=== PATIENT | female | born 1985 | race Caucasian/White ===

== ENCOUNTER 2019-08-26 16:41 | Emergency (ER) | payer OTHER, SELFPAY ==
[2019-08-26 16:46] VITALS: BP 132/85; PULSE 87; RESP 16; TEMP 36.8; O2SAT 99
--- NOTE | 2019-08-26 16:59 | ED.DENTAL ---
HPI - Dental/Oral General Chief complaint: Dental/Oral Stated complaint: toothache History of Present Illness HPI Narrative: This is a 33 year old female that comes in complain of left tooth pain that has been going on for the past 5 days Related Data Allergies Allergy/AdvReac Type Severity Reaction Status Date / Time No Known Allergies Allergy Verified 06/12/19 11:36 Review of Systems Review of Systems: Narrative: CONSTITUTIONAL: Denies fever, chills, or sweats. EYES: Denies visual changes, redness, or discharge. ENT: Denies rhinorrhea, congestion, sore throat, or otalgia. tooth pain CARDIOVASCULAR:Denies chest pain, palpitations, or edema. RESPIRATORY: Denies cough or dyspnea. GASTROINTESTINAL: Denies abdominal pain, nausea, vomiting, or diarrhea. GENITOURINARY: Denies dysuria or hematuria. SKIN:[Denies rash or itching. MUSCULOSKELETAL:Denies back pain, joint pain, or myalgia. NEUROLOGIC: Denies headache, numbness, or weakness. PSYCHIATRIC:Denies anxiety or depression PMFSH Past Medical History Medical History (Updated 08/27/19 @ 00:00 by Sandy Jarrell) Healthy female Surgical History Surgical History (Updated 06/12/19 @ 11:55 by Ralph Hughes) No history of previous surgery Social History Social History (Updated 06/12/19 @ 11:55 by Ralph Hughes) Smoking status: Current some day smoker Comments At time as signature, I have reviewed and agree with nursing past medical, social, surgical and family history. Please see nursing chart for further information. There is no relevant family history pertinent to the presenting complaint. Exam Narrative: Exam Narrative: GENERAL:Well-appearing, well-nourished, and in no acute distress. HEAD:Normocephalic, atraumatic. EYES: PERRLA and EOMI. ENT: Nares clear, no rhinorrhea or epistaxis. Mucous membranes moist. left side dental pain and edema noted. NECK: Supple. CHEST: Clear to auscultation. No respiratory distress. HEART: Regular rate and rhythm. No murmur heard. Normal peripheral pulses. ABDOMEN: Soft, nontender, nondistended, normal active bowel sounds. EXTREMITIES: Normal range of motion. No edema. SKIN: Warm, dry, no rash. NEURO: No focal deficits. Alert and oriented x3. Course Vital Signs Vital signs: Vital Signs Temperature 98.2 F 08/26/19 16:46 Pulse Rate 87 08/26/19 16:46 Respiratory Rate 16 08/26/19 16:46 Blood Pressure 132/85 08/26/19 16:46 Pulse Oximetry 99 08/26/19 16:46 Temperature 98.2 F 08/26/19 16:46 Pulse Rate 87 08/26/19 16:46 Respiratory Rate 16 08/26/19 16:46 Blood Pressure 132/85 08/26/19 16:46 Pulse Oximetry 99 08/26/19 16:46 MDM - Dental/Oral Differential Diagnosis Differential diagnosis: Likely gingival abscess, dental caries, toothache and dental abscess Discharge Plan Discharge Clinical Impression: Dental abscess, Toothache Patient Disposition: Home, Self-Care Condition: Stable Instructions: Antibiotic Form, Dental Abscess (ED) Additional Instructions: Please mix 40 ml of liquid Benadryl and 40 ml of Maalox with the lidocaine shake it well and then use 5 ml 4x a day as needed swish and swallow. Follow up with a dentist when you are able or they open back up Prescriptions: New penicillin V potassium 500 mg tablet 500 mg PO Q12H 10 Days Qty: 20 RF: 0 Lidocaine Viscous 2 % solution 1 applic MUCOUS MEM QID PRN (Reason: pain) Qty: 40 RF: 0 ibuprofen 600 mg tablet 600 mg PO TID PRN (Reason: pain) Qty: 20 RF: 0 Follow-up/Referrals: UNKNOWN,DOCTOR [Primary Care Provider] - Stand Alone Forms: Work/School Release IP Time of Disposition: 17:03 Discharge Date/Time: 08/26/19 17:08
== END 2019-08-26 17:08 | disposition home or self-care (01) ==
PROVIDERS: Emergency Provider Nurse Practitioner Family
DX: K04.7 Periapical abscess without sinus (principal)
CPT/HCPCS: 99213; G0463

== ENCOUNTER 2021-05-17 11:30 | Emergency (ER) | payer OTHER, SELFPAY ==
[2021-05-17 11:46] VITALS: BP 120/76; PULSE 68; RESP 16; TEMP 36.4; O2SAT 100
--- NOTE | 2021-05-17 18:44 | ED.GENADULT ---
HPI - General Adult General Chief complaint: Abdominal Pain Stated complaint: UPPER ABD PAIN/STARTED IN BACK Source: patient and RN notes reviewed Limitations: no limitations History of Present Illness HPI narrative: The patient, a non-smoker/exdrinker, presents with a 3-day history of abdominal discomfort. Patient states she has right upper quadrant/ flank pain that is mild, worse with movement or deep breathing, better at rest, it was preceded by back pains. 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 SHe is a last menstrual period ended 5 days ago, last BM was yesterday. Patient advised to go to hospital for higher level testing, which she declines today Related Data Home Medications Medication Instructions Recorded Confirmed citalopram mg 05/17/21 Allergies Allergy/AdvReac Type Severity Reaction Status Date / Time No Known Allergies Allergy Verified 06/12/19 11:36 Review of Systems Review of Systems: General/Constitutional: No weight loss,fever Eyes: N0: Redness,discharge Ears/Nose/Throat: No: Epistaxis,ear discharge Respiratory: Denies: Hemoptysis Gastrointestinal: No Vomiting, Bleeding-rectal Skin: No Lumps, eruption Neurologic: No Focal Weakness,Sz Hematologic: Denies: Petechiae/Purpura Psychiatric: No: Suicida ideationl All Other Systems: Reviewed and Negative [facility] Past Medical History Medical History (Updated 05/17/21 @ 18:51 by Gabo Mccollum MD) Healthy female Surgical History Surgical History (Updated 06/12/19 @ 11:55 by Ralph Hughes) No history of previous surgery Social History Social History (Updated 06/12/19 @ 11:55 by Ralph Hughes) Smoking status: Current some day smoker Comments At time of signature, agree with nursing past medical, surgical, social and family history. There is no relevant family history pertinent to the presenting complaint Exam Narrative: General Appearance: Well appearing, No distress EYE: PERRLA, Conjunctiva clear Ears: External ear normal Nose: Normal nose Mouth/Throat: Normal appearing, Normal lips Neck: Supple Respiratory: Airway patent, No respiratory distress Cardiovascular: RRR Abdomen: Soft, right upper quadrant tenderness, No massess, No organomegaly (no rebound/ surgical signs), Skin: No CVAT, warm, Dry Musculoskeletal: Full ROM Neurological: A&O x3, CN II-X intact Psychiatric: Normal mood, Normal affect Course Vital Signs Vital signs: Vital Signs Temperature 97.6 F 05/17/21 11:46 Pulse Rate 68 05/17/21 11:46 Respiratory Rate 16 05/17/21 11:46 Blood Pressure 120/76 05/17/21 11:46 Pulse Oximetry 100 05/17/21 11:46 Temperature 97.6 F 05/17/21 11:46 Pulse Rate 68 05/17/21 11:46 Respiratory Rate 16 05/17/21 11:46 Blood Pressure 120/76 05/17/21 11:46 Pulse Oximetry 100 05/17/21 11:46 Medical Decision Making Vital Signs Vital Signs: Vital Signs Temperature 97.6 F 05/17/21 11:46 Pulse Rate 68 05/17/21 11:46 Respiratory Rate 16 05/17/21 11:46 Blood Pressure 120/76 05/17/21 11:46 Pulse Oximetry 100 05/17/21 11:46 Temperature 97.6 F 05/17/21 11:46 Pulse Rate 68 05/17/21 11:46 Respiratory Rate 16 05/17/21 11:46 Blood Pressure 120/76 05/17/21 11:46 Pulse Oximetry 100 05/17/21 11:46 Lab Data Labs: Urine Glucose Negative Reference Range: Negative Urine Bilirubin Negative Reference Range: Negative Urine Ketone Negative Reference Range: Negative Urine Specific [place] 1.030 Reference Range:1.001-1.035 Urine Blood Negative Reference Range: Negat
== END 2021-05-17 13:43 | disposition home or self-care (01) ==
PROVIDERS: Emergency Provider Emergency Medicine
DX: R10.11 Right upper quadrant pain (principal); F17.200 Nicotine dependence, unspecified, uncomplicated
CPT/HCPCS: 81003; 99213; G0463

== ENCOUNTER 2021-05-18 14:50 | Emergency (ER) | payer OTHER, SELFPAY ==
[2021-05-18 14:53] VITALS: BP 137/88; PULSE 108; RESP 16; TEMP 36.6; O2SAT 98
[2021-05-18 19:20] VITALS: BP 149/100; PULSE 78; RESP 16; O2SAT 98
[2021-05-18 20:32] VITALS: BP 132/79; PULSE 76; RESP 16; O2SAT 99
[2021-05-18 20:48] LABS: Basophils Percent Auto 0.6 % (0.2-1.2); Eosinophils Absolute Auto 0.1 K/mm3 (0-0.3); Eosinophils Percent Auto 1.3 % (0-4.4); Hematocrit 35.4 % (37.0-47.0); Hemoglobin 11.7 g/dL (12.0-15.0); Immature Granulocyte Absolute 0.02 K/mm3 (0.00-0.031); Immature Granulocyte Percent A 0.3 % (0-0.5); Lymphocytes Absolute Auto 2.68 K/mm3 (0.9-3.2); Lymphocytes Percent Auto 37.3 % (18.3-44.2); Mean Corpuscular HGB Conc 33.1 g/dl (32-36); Mean Corpuscular Hemoglobin 29.6 pg (26-34); Mean Corpuscular Volume 89.6 fl (80-100); Mean Platelet Volume 10.1 fl (7.4-10.4); Monocytes Absolute Auto 0.6 K/mm3 (0.1-0.6); Monocytes Percent Auto 8.5 % (2.6-8.5); Neutrophils Absolute Auto 3.7 K/mm3 (1.3-6.7); Platelet Count Result 343 k/mm3 (150-375); Red Blood Count 3.95 M/mm3 (4.2-5.4); Red Cell Distribution Width 12.6 % (11.5-14.5); White Blood Count 7.2 K/mm3 (4.5-10.0)
[2021-05-18 20:58] LABS: Alanine Aminotransferase 47 U/L (4-35); Albumin Level 4.7 g/dL (3.5-5.1); Alkaline Phosphatase 68 U/L (38-126); Anion Gap 11 mmol/L (8-16); Aspartate Amino Transferase 38 U/L (14-36); Bilirubin,Total 0.5 mg/dL (0.2-1.3); Blood Urea Nitrogen 12 mg/dL (7-17); Calcium 8.9 mg/dL (8.4-10.2); Carbon Dioxide 23 mmol/L (22-30); Chloride 100 mmol/L (98-107); Estimated CRCL calculation 107 ml/min; Estimated Glomerular Filt Rate > 60; Glucose 89 mg/dL (65-110); Lipase 251 U/L (23-300); Potassium 3.8 mmol/L (3.4-5.0); Sodium 134 mmol/L (137-145)
[2021-05-18 21:04] LABS: Add Urine Microscopic? YES; Appearance Urine Clear (Clear); Bacteria Urine Trace /hpf; Bilirubin Urine Negative (Negative); Blood Urine Negative (Negative); Color Urine Yellow (Yellow); Glucose Urine UA Negative (Negative); Ketones Urine 1+ mg/dL (Negative); Leukocyte Esterase Ur Negative LEU/UL (Negative); Mucus Urine Rare /lpf; Nitrate Urine Negative (Negative); Protein Urine Negative (Negative); RBC Urine 0-2 /hpf (0-2); Specific Grav Ur 1.016 (1.001-1.035); Squamous Epithelial Cell Urine Moderate /hpf (Few); Urobilinogen Urine Negative mg/dL (<2.0); WBC Urine 0-3 /hpf
[2021-05-18 22:13] VITALS: BP 133/85; PULSE 84; RESP 18; O2SAT 99
--- NOTE | 2021-05-18 22:56 | ED.GENADULT ---
HPI - General Adult General Chief complaint: Abdominal Pain Stated complaint: abd pain Time Seen by Provider: 05/18/21 20:05 History of Present Illness HPI narrative: Patient is a 35-year-old female who presents ER with 2 different issues. Main issue is right upper quadrant pain. Ongoing over the last couple days. Was seen in urgent care and they placed her on Augmentin in case she had infection from biliary colic. She contacted her PCP who recommended she come to the ER for ultrasound if he cannot get an outpatient ultrasound for 2 weeks. Patient has no fevers or chills or sweats. She does have some pain with eating. No diarrhea. She has had issues with emesis. Patient also reports some low back pain that is aching in nature. Worse with movement. Right side and in the lumbar region. No reports of injury. Related Data Home Medications Medication Instructions Recorded Confirmed citalopram mg 05/17/21 Allergies Allergy/AdvReac Type Severity Reaction Status Date / Time No Known Allergies Allergy Verified 06/12/19 11:36 Review of Systems Review of Systems: All systems reviewed & are unremarkable except as noted in HPI and below Constitutional: Constitutional: Denies chills, Denies fever(s) and Denies weakness Cardiovascular: Cardiovascular: Denies chest pain, Denies rapid heart rate and Denies radiating jaw, neck or arm pain Respiratory: Respiratory: Denies cough, Denies dyspnea and Denies wheezing Gastrointestinal: Gastrointestinal: Reports abdominal pain, Denies heartburn, Denies diarrhea, Reports nausea and Reports vomiting Musculoskeletal: Musculoskeletal: Reports back pain, Denies joint swelling and Denies muscle cramps Integumentary/Breasts: Skin/Breast: Denies pruritus, Denies erythema and Denies rash Neurologic: Denies focal weakness and Denies numbness PMFSH Past Medical History Medical History (Updated 05/18/21 @ 23:00 by Ivan Squires MD) Healthy female Surgical History Surgical History (Updated 06/12/19 @ 11:55 by Ralph Hughes) No history of previous surgery Social History Social History (Updated 06/12/19 @ 11:55 by Ralph Hughes) Smoking status: Current some day smoker Exam Narrative: GENERAL: Well-appearing, well-nourished, and in no acute distress. HEAD: Normocephalic, atraumatic. ENT: Mucous membranes moist. CHEST: Clear to auscultation. No respiratory distress. HEART: Regular rate and rhythm. Normal peripheral pulses. ABDOMEN: Soft, nontender, nondistended. Back: No midline tenderness of thoracic or lumbar spine. Very mild right paraspinal muscular tenderness at the level of L4. No palpable spasm. No visual evidence of trauma. EXTREMITIES: Normal range of motion. No edema. SKIN: Warm, dry, no rash. NEURO: Alert and oriented x3. PSYCH: Normal mood and affect. Course Course Emergency Course: Labs unremarkable. Will start on Protonix in case she has GERD or peptic ulcer. Mild transaminitis. No Enriquez sign. Follow-up with PCP. Recommend low-fat diet. Vital Signs Vital signs: Vital Signs Temperature 97.8 F 05/18/21 14:53 Pulse Rate 108 H 05/18/21 14:53 Respiratory Rate 16 05/18/21 14:53 Blood Pressure 137/88 05/18/21 14:53 Pulse Oximetry 98 05/18/21 14:53 Temperature 97.8 F 05/18/21 14:53 Pulse Rate 84 05/18/21 22:13 Respiratory Rate 18 05/18/21 22:13 Blood Pressure 133/85 05/18/21 22:13 Pulse Oximetry 99 05/18/21 22:13 Medical Decision Making Vital Signs Vital Signs: Vital Signs Temperature 97.8 F 05/18/21 14:53 Pulse Rate 108 H 05/18/21 14:53 Respiratory Rate 16 05/18/21 14:53 Blood Pressure 137/88 05/18/21 14:53 Pulse Oximetry 98 05/18/21 14:53 Temperature 97.8 F 05/18/21 14:53 Pulse Rate 84 05/18/21 22:13 Respiratory Rate 18 05/18/21 22:13 Blood Pressure 133/85 05/18/21 22:13 Pulse Oximetry 99 05/18/21 22:13 Lab Data Result diagrams: 05/18/21 20:21 1
[2021-05-18 23:19] VITALS: BP 126/71; PULSE 78; RESP 18; O2SAT 100
== END 2021-05-18 23:20 | disposition home or self-care (01) ==
PROVIDERS: Emergency Provider Emergency Medicine
DX: R10.11 Right upper quadrant pain (principal); F17.200 Nicotine dependence, unspecified, uncomplicated
CPT/HCPCS: 36415; 80053; 81001; 83690; 85025; 99283

== ENCOUNTER 2021-07-16 17:42 | Emergency (ER) | payer OTHER, SELFPAY ==
[2021-07-16 17:45] VITALS: BP 129/78; PULSE 84; RESP 16; TEMP 36.6; O2SAT 99
--- NOTE | 2021-07-16 17:47 | ED.DENTAL ---
HPI - Dental/Oral General Chief complaint: Dental/Oral Stated complaint: FACIAL PAIN/SWELLING Time Seen by Provider: 07/16/21 17:48 Source: patient, RN notes reviewed and old records reviewed Mode of arrival: ambulatory Limitations: no limitations History of Present Illness HPI Narrative: 35-year-old female patient [facility] complaints of pain in front of right ear and right upper jaw pain beginning yesterday. Reports started yesterday, not much pain with movement, pain increases with movement. Rates pain at 5 out of 10 with movement. Worse with chewing. Reports pain with touch to jaw. Denies chipped tooth or injury to that area. Reports mild tooth sensitivity. Denies headache, stuffy nose, runny nose, or left ear pain. Occasional cough. Denies fever muscle aches or chills. Has not taken anything for pain. Teeth map: 1. Pain with pressure. Related Data Home Medications Medication Instructions Recorded Confirmed citalopram mg 05/17/21 Allergies Allergy/AdvReac Type Severity Reaction Status Date / Time No Known Allergies Allergy Verified 06/12/19 11:36 Review of Systems Review of Systems: CONSTITUTIONAL: Denies malaise, chills, sweats, fatigue or fever. EYES: Denies visual changes, redness, or discharge. ENT: Denies rhinorrhea, congestion, sinus pain, otalgia or sore throat. Pain in front of right ear. Pain at right upper jaw. CARDIOVASCULAR: Denies chest pain, palpitations, or edema. RESPIRATORY: Denies cough or dyspnea. GASTROINTESTINAL: Denies abdominal pain, nausea, vomiting, diarrhea, bloody, or mucous stools. GENITOURINARY: Denies dysuria or hematuria. SKIN: Denies rash or itching. MUSCULOSKELETAL: Denies back pain, joint pain, or myalgia. NEUROLOGIC: Denies numbness, weakness, or headache. PSYCHIATRIC: Denies anxiety or depression. All systems reviewed & are unremarkable except as noted in HPI and below PMFSH Past Medical History Medical History Healthy female Surgical History Surgical History No history of previous surgery Social History Social History Smoking status: Current some day smoker Comments At time of signature, agree with nursing past medical, surgical, social and family history. There is no relevant family history pertinent to the presenting complaint Exam Narrative: GENERAL: Well-appearing, well-nourished, female and in no acute distress. Pleasant, cooperative, casually dressed. HEAD: Normocephalic, atraumatic. Right parotid tenderness with palpation. EYES: conjunctivae clear, and EOMI. No nystagmus. MOUTH: Right posterior upper gum tenderness with touch and mildly edematous. ENT: Nares clear, turbinates pink, no rhinorrhea or epistaxis. Mucous membranes moist. TM pearly weathers with sharp light reflex bilaterally; no tragal tenderness. Oropharynx without erythema or lesions. Tonsils not enlarged and without exudate. NECK: Supple. No anterior cervical or tonsillar lymphadenopathy or tenderness with palpation. No parotid lymphadenopathy. Parotid lymph tenderness with palpation.. No jugular venous distension, thyromegaly, or carotid bruits. CHEST: No respiratory distress. Clear to auscultation anterior and posterior. No bony deformities, no asymmetry. Speaks in full sentences. HEART: Regular rate and rhythm. No murmur heard. Normal peripheral pulses. ABDOMEN: Soft, nontender, nondistended, normal active bowel sounds, no palpable masses. EXTREMITIES: Normal range of motion. No edema. Normal strength and sensation. SKIN: [place], warm, dry, no rash. NEURO: Alert and oriented x3. No focal deficits. Cranial nerves II through XII grossly intact PSYCH: Normal mood and affect Course Course Emergency Course: Patient is aware of diagnosis, understands and agrees to treatment plan. Anticipatory guidance
[2021-07-16 17:49] VITALS: BP 129/78; PULSE 84; RESP 16; TEMP 36.6; O2SAT 99
== END 2021-07-16 18:18 | disposition home or self-care (01) ==
PROVIDERS: Emergency Provider Nurse Practitioner Family
DX: K04.7 Periapical abscess without sinus (principal)
CPT/HCPCS: 99213; G0463

== ENCOUNTER 2021-08-25 00:35 | Emergency (ER) | payer OTHER, SELFPAY ==
[2021-08-25] VITALS (8 sets, daily range): BP systolic 100–116; BP diastolic 53–78; PULSE 58–79; RESP 7–26; TEMP 36.8; O2SAT 95–100
--- NOTE | ~2021-08-25 | CT_ITS ---
EXAMINATION: CT abdomen pelvis w con DATE: 08/25/2021 02:13 INDICATION: Right upper quadrant abdominal pain. TECHNIQUE: Computed tomography (CT) of the abdomen and pelvis was performed with 100 mL Omnipaque 350 intravenous contrast. Automated exposure control and iterative reconstruction technique were employe d. The dose-length product was 503.98 mGy-cm. COMPARISON: Abdomen ultrasound 05/15/2018 FINDINGS: The visualized portions of the lung bases demonstrate mild atelectasis. No pleural effusion . The heart size is normal. No pericardial effusion. The liver demonstrates focal steatosis adjacent to the falciform ligament. The gallbladder is distended and contains gallstones. The spleen, pancreas , adrenal glands, and kidneys are normal. There are no dilated loops of bowel. The appendix is normal . There is physiologic fluid in the pelvis. There are no pathologically enlarged lymph nodes. There i s mild thoracolumbar spondylosis. IMPRESSION: 1. Distended gallbladder with gallstones, consistent with acute cholecystitis. Reviewed, dictated and finalized at location A.
[2021-08-25 00:49] LABS: Basophils Percent Auto 0.4 % (0.2-1.2); Eosinophils Absolute Auto 0.1 K/mm3 (0-0.3); Eosinophils Percent Auto 1.1 % (0-4.4); Hematocrit 32.6 % (37.0-47.0); Hemoglobin 10.1 g/dL (12.0-15.0); Immature Granulocyte Absolute 0.01 K/mm3 (0.00-0.031); Immature Granulocyte Percent A 0.1 % (0-0.5); Lymphocytes Absolute Auto 3.58 K/mm3 (0.9-3.2); Lymphocytes Percent Auto 49.9 % (18.3-44.2); Mean Corpuscular Hemoglobin 26.5 pg (26-34); Mean Corpuscular Volume 85.6 fl (80-100); Mean Platelet Volume 10.7 fl (7.4-10.4); Monocytes Absolute Auto 0.7 K/mm3 (0.1-0.6); Monocytes Percent Auto 9.8 % (2.6-8.5); Neutrophils Absolute Auto 2.8 K/mm3 (1.3-6.7); Neutrophils Percent Auto 38.7 % (45.5-73.1); Platelet Count Result 298 k/mm3 (150-375); Red Blood Count 3.81 M/mm3 (4.2-5.4); Red Cell Distribution Width 15.4 % (11.5-14.5); White Blood Count 7.2 K/mm3 (4.5-10.0)
--- NOTE | 2021-08-25 00:56 | ED.ABDPAIN ---
HPI - Abdominal Pain General Chief Complaint: Abdominal Pain <HAILEY Griffiths Last Filed: 08/25/21 02:57> Stated Complaint: ABD PAIN <HAILEY Griffiths Last Filed: 08/25/21 02:57> Time Seen by Provider: 08/25/21 00:46 <HAILEY Griffiths Last Filed: 08/25/21 02:57> Source: patient <HAILEY Griffiths Last Filed: 08/25/21 02:57> Mode of arrival: EMS <HAILEY Griffiths Last Filed: 08/25/21 02:57> Limitations: no limitations <HAILEY Griffiths Last Filed: 08/25/21 02:57> History of Present Illness HPI narrative: This is a 35 year old female that presents to the ER for RUQ pain intermittent over the last couple of days. Worsening tonight after eating fried rice and vegetables. Associated with nausea. Denies fever, vomiting, diarrhea, or dysuria. <HAILEY Griffiths Last Filed: 08/25/21 02:57> Related Data Home Medications: Home Medications Medication Instructions Recorded Confirmed citalopram mg 05/17/21 <HAILEY Griffiths Last Filed: 08/25/21 02:57> Allergies/Adverse Reactions: Allergies Allergy/AdvReac Type Severity Reaction Status Date / Time No Known Allergies Allergy Verified 08/25/21 00:39 <HAILEY Griffiths Last Filed: 08/25/21 02:57> Review of Systems Review of Systems: CONSTITUTIONAL: Denies fever CARDIOVASCULAR: Denies chest pain RESPIRATORY: Denies dyspnea. GASTROINTESTINAL: Reports abdominal pain, nausea. Denies vomiting, or diarrhea. GENITOURINARY: Denies dysuria or hematuria. <HAILEY Griffiths Last Filed: 08/25/21 02:57> All systems reviewed & are unremarkable except as noted in HPI and below <HAILEY Griffiths Last Filed: 08/25/21 02:57> [facility] Past Medical History Medical History: Medical History (Updated 08/25/21 @ 05:10 by Ronni Knox MD) History of anxiety History of depression <María Stanley PA-C - Last Filed: 08/25/21 02:57> Surgical History Surgical History: Surgical History No history of previous surgery <María Stanley PA-C - Last Filed: 08/25/21 02:57> Social History Social History: Social History Smoking status: Current some day smoker <María Stanley PA-C - Last Filed: 08/25/21 02:57> Exam Narrative: GENERAL: Well-appearing, well-nourished, and in no acute distress. HEAD: Normocephalic, atraumatic. EYES: EOMI. CHEST: Clear to auscultation. No respiratory distress. No wheezes rales or rhonchi HEART: Regular rate and rhythm. No murmur heard. Normal peripheral pulses. ABDOMEN: Soft, nondistended, normal active bowel sounds. Tender to palpation in the right upper quadrant, without guarding. No CVA tenderness EXTREMITIES: Normal range of motion. No edema. SKIN: Warm, dry, no rash. NEURO: No focal deficits. Alert and oriented x3. PSYCH: Normal mood and affect <María Stanley PA-C - Last Filed: 08/25/21 02:57> Course [employer]/PA Physician Supervision For this patient encounter, I reviewed the [employer] or PA documentation, treatment plan, and medical decision making; and I had [id number] time with this patient. Patient feels significantly improved at time of signout. Patient had no reproducible tenderness to palpation on exam. Patient states that she has had 2 prior gallbladder attacks but this was the most severe. Patient states that she does feel improved and comfortable with the plan for discharge to home. Patient is afebrile. Patient has no leukocytosis and patient has a benign abdominal exam at this time. Patient was encouraged to have close follow-up with surgery. Patient was also educated on reasons to return to the [facility]. All questions and concerns were addressed. <Ronni Knox MD - Last Filed: 08/25/21 05:53> Vital Signs Vital signs: Vital Signs Temperature 98.3 F
[2021-08-25 01:00] LABS: Alanine Aminotransferase 30 U/L (4-35); Albumin Level 4.1 g/dL (3.5-5.1); Alkaline Phosphatase 53 U/L (38-126); Anion Gap 9 mmol/L (8-16); Aspartate Amino Transferase 40 U/L (14-36); Bilirubin,Total 0.2 mg/dL (0.2-1.3); Blood Urea Nitrogen 11 mg/dL (7-17); Carbon Dioxide 22 mmol/L (22-30); Chloride 107 mmol/L (98-107); Estimated CRCL calculation 116 ml/min; Estimated Glomerular Filt Rate > 60; Glucose 124 mg/dL (65-110); Lipase 517 U/L (23-300); Potassium 3.4 mmol/L (3.4-5.0); Sodium 138 mmol/L (137-145)
[2021-08-25] MEDS: PANTOPRAZOLE SODIUM IV 40 MG VIAL IV PUSH (01:07)
[2021-08-25] MEDS: SODIUM CHLORIDE 0.9% IV 1,000 ML 999 ML IV CONT (01:07)
[2021-08-25 02:02] LABS: Add Urine Microscopic? YES; Appearance Urine Clear (Clear); Bacteria Urine Trace /hpf; Bilirubin Urine Negative (Negative); Blood Urine 2+ (Negative); Color Urine Yellow (Yellow); Glucose Urine UA Negative (Negative); Ketones Urine Trace mg/dL (Negative); Leukocyte Esterase Ur Negative LEU/UL (Negative); Mucus Urine Rare /lpf; Nitrate Urine Negative (Negative); Protein Urine Negative (Negative); RBC Urine 0-2 /hpf (0-2); Specific Grav Ur 1.019 (1.001-1.035); Squamous Epithelial Cell Urine Few /hpf (Few); Urobilinogen Urine Negative mg/dL (<2.0); WBC Urine 0-3 /hpf
== END 2021-08-25 05:15 | disposition home or self-care (01) ==
PROVIDERS: Emergency Provider Emergency Medicine
DX: K80.50 Calculus of bile duct without cholangitis or cholecystitis without obstruction (principal); R10.11 Right upper quadrant pain; F41.9 Anxiety disorder, unspecified; F32.A Depression, unspecified
CPT/HCPCS: 36415; 74177; 80053; 81001; 81025; 83690; 85025; 96365; 96375; 99284; C9113; J0131; J7030; Q9967

== ENCOUNTER 2021-09-04 09:25 | Outpatient (CLI) | payer OTHER, SELFPAY ==
[2021-09-04 10:16] LABS: Amylase 72 U/L (30-110); Lipase 254 U/L (23-300)
== END 2021-09-04 09:26 | disposition home or self-care (01) ==
LOC: ANHSURGERY 09:33
PROVIDERS: Visit Provider Surgery
DX: Z01.812 Encounter for preprocedural laboratory examination (principal); K81.0 Acute cholecystitis
CPT/HCPCS: 36415; 82150; 83690; 86850; 86900; 86901

== ENCOUNTER 2021-09-06 00:28 | Day surgery (SDC) | payer OTHER, SELFPAY ==
[2021-08-30 14:38] VITALS: BMI 29.2
--- NOTE | 2021-08-30 14:53 | PC.NURSE ---
Report to the Outpatient Waiting Room, entrance under the green pavilion located off [facility], at time 11:30 on date 09/06/21. OR Time: 1:30. - You and your visitor will be asked a series of questions to screen for COVID 19 for your protection. - A mask is required within the hospital. One visitor will be allowed to accompany the patient into the hospital. Patients visitor will be instructed to remain with patient at all times or leave the building. We will allow the visitor to come back to the postoperative area when patient is ready. Preoperative COVID Testing Requirements: No COVID Test needed if: (proof is required; if not received patient will have Rapid Test prior to entry) - Patient has received COVID Vaccine at least 14 days prior to procedure date or - Patient has positive COVID test result within last 90 days of surgery date. COVID Test needed if above criteria is not met Patients may have clear liquids (water, carbonated beverages, clear teas, apple juice) until 3 hours prior to surgery with a maximum of 20 ounces. - No food from midnight until time of surgery Take the following medications with a SIP of water the morning of surgery: CITALOPRAM, PAIN PILL (IF NEEDED) Medications to discontinue per physician: VITAMINS/SUPPLEMENTS Date to take last dose: 09/02/21 Please no make-up, nail french, hairspray, perfume, deodorant, or body powder the day of surgery. No jewelry (including any body piercings) or valuables the day of surgery, leave them at home. Please take a shower or bath the night before, or the morning of, surgery with an antibacterial soap. Wear comfortable, loose fitting clothing. HIBICLENS SHOWER - Jewelry must be removed prior to entering the operating room. Rings and piercings that are not removed may be cut off. - The hospital will not accept responsibility for valuables. - Please leave all valuables, including medications, at home the day of surgery. If you are going home after surgery, a licensed over the road driver must drive you home. - NO public transportation without another adult. - We recommend that an adult stay with you for 24 hours following discharge. - We also recommend that you do not drive, make important decision, drink alcoholic beverages, or take any drugs that were not prescribed by your health care provider for at least 24 hours after your discharge time. Follow any additional instructions given to you from your surgeon. Telephone instructions given to AMALIA GRAHAM and asked if any additional questions and then verbalized understanding. Patient advised to call surgeon office or pre surgery nurse liaison [phone] if any additional questions.
[2021-09-06] VITALS (9 sets, daily range): BP systolic 92–116; BP diastolic 58–69; PULSE 59–72; RESP 14–16; TEMP 36.1–37; O2SAT 97–100
--- NOTE | 2021-09-06 10:07 | WPDANESEPPF ---
Anes - Initial Pre Proc Eval Procedure: Operation Date: 09/06/21 12:00 Proposed Procedures p Laparoscopic Cholecystectomy - Rhona Farrell MD Date/Time: 09/06/21 10:07 Surgeon: Rhona Farrell MD Pre Op Diagnosis: acute cholecystitis,acute biliary pancreatitis Patient Data Age: 35 Gender: F Height: 1.63 m Weight: 77.11 kg Allergies Allergy/AdvReac Type Severity Reaction Status Date / Time No Known Allergies Allergy Verified 09/06/21 10:52 Home Medications Medication Instructions Recorded Confirmed Type citalopram 20 mg PO DAILY 05/17/21 09/06/21 History hydrocodone-acetaminophen 1 tablet PO Q8H PRN #14 tablet 08/25/21 09/06/21 Rx cholecalciferol (vitamin D3) 25 mcg PO DAILY 08/30/21 09/06/21 History [Vitamin D3] Patient hx anesthesia problems: none Family hx anesthesia problems: none Results Review: All pre-operative results and documents have been reviewed as part of the pre-operative evaluation. [facility] Past Medical History Medical History History of anxiety History of depression Surgical History Surgical History H/O section Social History Social History Smoking packs per day: 0.25 Smoking cigarettes per day: 5.0 Years smoked: 15 Smoking pack-years: 3.75 Smoking status: Former smoker Tobacco type: cigarettes Smoking end date: 02/17/21 Alcohol intake: current Drinks per week: 4 Substance use: never Substance use type: does not use Living arrangements: with family Additional living arrangements comments: DAUGHTER Gender identity (if verbalized by the patient): Female Spiritual care concerns: No Anes - Eval Final PreProcedure Day of Procedure 09/06/21 10:07 Patient weight: overweight Heart: regular rate and rhythm Lungs: clear to auscultation and normal air movement Airway: Mallampati scale class II Neurological: alert and oriented Last oral intake: >/= 8 hours ASA classification: II Emergent: no Anesthetic plan: proceed Anesthesia type and monitoring: general ETT and standard monitoring Results Review: All pre-operative results and documents have been reviewed as part of the pre-operative evaluation. Informed Consent: The patient's anesthetic plan and its attendant risks and benefits were discussed with the patient/family/POA. Questions were solicited and answers provided to the satisfaction of the patient/family/POA.
[2021-09-06] MEDS: ACETAMINOPHEN 500 MG TABLET 1000 MG PO (11:10)
[2021-09-06] MEDS: LACTATED RINGERS 1,000 ML 30 ML IV CONT ×2 (11:30→13:15)
[2021-09-06] MEDS: KETOROLAC 15 MG/ML VIAL (*BKC) IV PUSH ×2 (11:30→14:42)
--- NOTE | 2021-09-06 12:12 | WPDHPUPDATE1 ---
History and Physical Update Update Date/Time: 09/06/21 12:12 History and Physical has been reviewed, including an updated exam of the patient. There are NO changes in the patient's condition. Risks, benefits, and alternatives have been discussed and questions answered. Patient agrees to proceed with procedure.
[2021-09-06] MEDS: ceFAZolin 2 GM/D5W 50 ML 2 GM/50 ML BAG IVPB (12:29)
--- NOTE | 2021-09-06 13:07 | W.PM.PROC2 ---
Procedure Note - Detailed Date of Procedure 09/06/21 Pre-op Diagnosis acute cholecystitis,acute biliary pancreatitis Post-op Diagnosis Same Procedure Performed Laparoscopic cholecystectomy Surgeon Rhona Farrell MD Anesthesia General Indications 35 y/o F previously presented with acute biliary pancreatitis, now presenting for interval cholecystectomy Findings moderate cholecystitis Description of Procedure The patient was taken to the operating room placed in the supine position. After adequate induction of general anesthesia, the patient was prepped and draped in normal sterile fashion. A time-out was then performed to verify the patient's identity as well as the procedure being performed. I then made a 5 mm incision in the infraumbilical region. Through this, a Veress needle was placed into the peritoneal cavity and CO2 gas was then insufflated. After adequate pneumoperitoneum was achieved, the Veress needle was removed and a 5 mm optiview trocar was placed through this incision under direct visualization. I then placed the laparoscope through this trocar site and under direct visualization placed a further 12 mm subxiphoid port as well as 2 additional 5 mm ports in the right upper abdomen. The gallbladder was then identified and was noted to be moderately inflamed and distended. I was able to place a grasper at the dome of the gallbladder and this was retracted anterior and cephalad up over the liver. A 2nd retractor was then placed at the infundibulum and retracted laterally, this allowed visualization of the triangle of Calot. I then was able to visualize the cystic duct in its entirety from its proximal insertion into the gallbladder, to its distal junction with the common hepatic/common bile duct junction. At this point, I carefully skeletonized the proximal cystic duct with the [place] dissector. I then clipped and transected the proximal cystic duct. Next I visualized the cystic artery. Again the artery was skeletonized, clipped, and transected. I then used the Bovie cautery to take down the peritoneal attachments of the gallbladder off the liver bed. Once the gallbladder specimen was completely detached, an endo-pouch was placed through the 12 mm port site. I then placed the gallbladder specimen into the Endo pouch and removed the endo-pouch from the 12 mm port site. The specimen will now be sent to pathology for further review. I then copiously irrigated the right upper quadrant. Hemostasis was noted in the liver bed, the clips were noted to be in good position on both the cystic duct stump and the cystic artery stump. No other pathology was noted in the right upper quadrant. I then moved the laparoscope to the subxiphoid port. No iatrogenic injury or other pathology was noted in the lower abdomen. I then closed the 12 mm trocar site under direct visualization using the Jacob cone and 0 Vicryl suture. At this point, the abdomen was desufflated and all ports removed. All port sites were then closed with 4.O Monocryl subcuticular sutures. Dermabond was placed on each incision. The patient tolerated the procedure well, was extubated in the operating room postoperative and will be transferred to the recovery room in stable condition Estimated Blood Loss 5 Drains No Packing No Pathology Yes Complications No immediate complications Condition Stable Disposition PACU
[2021-09-06] MEDS: fentaNYL CITRATE INJ (*CRX) 100 MCG/2 ML VIAL 25 MCG IV PUSH ×4 (13:25→13:50)
[2021-09-06] MEDS: ONDANSETRON INJ 4 MG/2 ML VIAL IV PUSH (13:46)
[2021-09-06] MEDS: diphenhydrAMINE HCl INJ 50 MG/ML VIAL 25 MG IV PUSH (14:38)
[2021-09-06] MEDS: SCOPOLAMINE 1.5 MG PATCH TRANSDERM (14:41)
[2021-09-06] MEDS: oxyCODONE HCL (*CRX) 5 MG TAB IR PO (15:05)
== END 2021-09-06 16:10 | disposition home or self-care (01) ==
PROVIDERS: Visit Provider Surgery
PROC: 0FT44ZZ Resection of Gallbladder, Percutaneous Endoscopic Approach (ICD-10-PCS; CPT 47562; principal; 2021-09-06 12:00)
DX: K85.10 Biliary acute pancreatitis without necrosis or infection (principal); K81.1 Chronic cholecystitis; Z87.891 Personal history of nicotine dependence; F41.8 Other specified anxiety disorders
CPT/HCPCS: 47562; 88304; A9270; J0690; J1170; J1200; J1885; J2250; J2405; J2704; J3010; J7030; J7120

== ENCOUNTER 2021-11-16 13:25 | Outpatient (CLI) | payer OTHER, SELFPAY ==
[2021-11-16 13:56] LABS: Hematocrit 36.2 % (37.0-47.0); Hemoglobin 11.6 g/dL (12.0-15.0)
== END 2021-11-16 13:26 | disposition home or self-care (01) ==
LOC: ANHSURGERY 13:31
PROVIDERS: Anesthesiology; Visit Provider Obstetrics & Gynecology
DX: D64.9 Anemia, unspecified (principal); Z01.818 Encounter for other preprocedural examination
CPT/HCPCS: 36415; 85014; 85018

== ENCOUNTER 2021-11-22 01:59 | Day surgery (SDC) | payer OTHER, SELFPAY ==
[2021-11-15 14:02] VITALS: BMI 27.6
--- NOTE | 2021-11-15 14:05 | PC.NURSE ---
Report to the Outpatient Waiting Room, entrance under the green pavilion located off [facility], at time ___06:00AM____ on date ___5[birth year]____. OR Time: ____07:30AM__. - You and your visitor will be asked a series of questions to screen for COVID 19 for your protection. - Only one visitor is allowed at this time. - The patient visitor is requested to leave or wait in car when not with patient. - A mask is required within the hospital. Patients may have clear liquids (water, carbonated beverages, clear teas, apple juice) until 3 hours prior to surgery with a maximum of 20 ounces. AFTER 5:00AM NO LIQUIDS - No food from midnight until time of surgery - Infants may have breast milk until 4 hours before surgery, infant formula 6 hours prior to surgery. - Children will be allowed to drink immediately following surgery. If applicable, please bring a bottle or sippy cup to assist with drinking. Juice, water, soda, and popsicles are readily available. For infants on formula, please bring formula the day of surgery. Pacifiers are allowed. Take the following medications with a SIP of water the morning of surgery: CITALOPRAM Medications to discontinue per physician VITAMINS Date to take last fdwf 0-0-26 Please no make-up, nail kittitian, hairspray, perfume, deodorant, or body powder the day of surgery. No jewelry (including any body piercings) or valuables the day of surgery, leave them at home. Please take a shower or bath the night before, or the morning of, surgery with an antibacterial soap. Wear comfortable, loose fitting clothing. Children are encouraged to wear pajamas. - Jewelry must be removed prior to entering the operating room. Rings and piercings that are not removed may be cut off. - The hospital will not accept responsibility for valuables. - Please leave all valuables, including medications, at home the day of surgery. If you are going home after surgery, a licensed spotter driver must drive you home. - NO public transportation without another adult. - We recommend that an adult stay with you for 24 hours following discharge. - We also recommend that you do not drive, make important decision, drink alcoholic beverages, or take any drugs that were not prescribed by your health care provider for at least 24 hours after your discharge time. For Pediatric surgeries, we recommend two adults accompany the child home (only one inside the building at this time). Follow any additional instructions given to you from your surgeon. If you or anyone in your household have experienced Covid symptoms in the past week, please notify your surgeon or the nurse liaison at the phone number below for possible testing. Telephone instructions given to ____PATIENT____and asked if any additional questions and then verbalized understanding. Patient advised to call surgeon office or pre surgery nurse liaison [phone] if any additional questions.
[2021-11-22] VITALS (7 sets, daily range): BP systolic 102–117; BP diastolic 68–81; PULSE 54–83; RESP 12–16; TEMP 36.2–36.6; O2SAT 100
--- NOTE | 2021-11-22 06:38 | P.PNAN_ITS ---
Anes - Initial Pre Proc Eval Procedure: Operation Date: 11/22/21 07:30 Proposed Procedures p Hysteroscopy, Anamika Endometrial Ablation, with Laparoscopic Bilateral Salpingectomy - Tobi France MD Date/Time: 11/22/21 06:38 Surgeon: Tobi France MD Pre Op Diagnosis: menorrhagia Patient Data Age: 35 Gender: F Height: 1.63 m Weight: 73 kg Allergies Allergy/AdvReac Type Severity Reaction Status Date / Time No Known Allergies Allergy Verified 11/15/21 13:51 Home Medications Medication Instructions Recorded Confirmed Type citalopram 20 mg tablet 20 mg PO DAILY 05/17/21 11/15/21 History cyanocobalamin (vitamin B-12) 1,000 mcg PO DAILY 11/15/21 11/15/21 History 1,000 mcg tablet (Vitamin B-12) multivit with 1 tablet PO DAILY 11/15/21 11/15/21 History nkmnnunv-pqaq-WV-lutein 8 mg iron-400 mcg-300 mcg tablet (Centrum Silver Women) Patient hx anesthesia problems: none Family hx anesthesia problems: none Results Review: All pre-operative results and documents have been reviewed as part of the pre- operative evaluation. [facility] Past Medical History Medical History History of anxiety History of depression Surgical History Surgical History H/O section Hx laparoscopic cholecystectomy 09/06/21 Social History Social History Smoking packs per day: 0.25 Smoking cigarettes per day: 5.0 Years smoked: 15 Smoking pack-years: 3.75 Smoking status: Former smoker Tobacco type: cigarettes Smoking end date: 02/17/21 Alcohol intake: current Drinks per week: 5 Substance use: never Substance use type: does not use Living arrangements: with family Additional living arrangements comments: DAUGHTER Gender identity (if verbalized by the patient): Female Spiritual care concerns: No Anes - Eval Final PreProcedure Day of Procedure 11/22/21 06:38 Patient weight: overweight Heart: regular rate and rhythm Lungs: clear to auscultation Airway: Mallampati scale class 1 Neurological: alert and oriented Last oral intake: >/= 8 hours ASA classification: II Emergent: no Anesthetic plan: proceed Anesthesia type and monitoring: general ETT and standard monitoring Results Review: All pre-operative results and documents have been reviewed as part of the pre- operative evaluation. Informed Consent: The patient's anesthetic plan and its attendant risks and benefits were discussed with the patient/family/POA. Questions were solicited and answers provided to the satisfaction of the patient/family/POA.
[2021-11-22] MEDS: LACTATED RINGERS 1,000 ML 30 ML IV CONT ×2 (06:45→08:27)
[2021-11-22] MEDS: ACETAMINOPHEN 500 MG TABLET 1000 MG PO (06:46)
[2021-11-22] MEDS: KETOROLAC 15 MG/ML VIAL (*BKC) IV PUSH (06:47)
--- NOTE | 2021-11-22 07:11 | WPDHPUPDATE1 ---
History and Physical Update Update Date/Time: 11/22/21 07:11 History and Physical has been reviewed, including an updated exam of the patient. There are NO changes in the patient's condition. Risks, benefits, and alternatives have been discussed and questions answered. Patient agrees to proceed with procedure.
[2021-11-22] MEDS: fentaNYL CITRATE INJ (*CRX) 100 MCG/2 ML VIAL 25 MCG IV PUSH ×4 (08:33→08:48)
--- NOTE | 2021-11-22 08:34 | P.OP_ITS ---
Procedure Note - Detailed Date of Procedure 11/22/21 Pre-op Diagnosis menorrhagia, unwanted fertility Post-op Diagnosis Same Procedure Performed Laparoscopic bilateral salpingectomy with endometrial ablation and hysteroscopy. Surgeon Tobi France MD Anesthesia General Indications Menorrhagia, female sterilization Findings normal vulva, vagina, and cervix, normal pelvic anatomy Description of Procedure Patient was taken the operating room. She has prepped draped in the dorsal lithotomy position after induction of general anesthesia. A 5 mm abdominal incision was made in left upper quadrant of the abdomen with scalpel. A 5 mm trocars inserted the intra-abdominal cavity under direct visualization of the scope. Pneumoperitoneum was achieved. A 5 mm periumbilical incision was made using a scalpel on the abdominal scan. A 5 mm trocar was inserted the intra- abdominal cavity under visualization of the scope. A 5 mm incision made left lower quadrant of the abdomen. A 5 mm trocar was inserted the intra-abdominal cavity and direct visualization of the scope. The bilateral fallopian tubes were removed. The paratubal tissue in the area of the uterus was grasped with the LigaSure cautery and transected after being cauterized. The paratubal tissue from the ovary to the uterine cornu was cauterized and transected with LigaSure cautery. This was all done in a bilateral fashion. The tube was transected at the area of the uterine cornua and the tubes was removed through the 5 mm trocar site. The pneumoperitoneum was reduced. The trocars were removed. The skin was closed with subcuticular 4 Monocryl and covered with Dermabond. Our attention was then turned to the endometrial ablation portion of the procedure. A speculum was placed in the vagina. The cervix was grasped with a tenaculum. The cervix was dilated to approximately 8 mm with Aden dilators. The hysteroscope was inserted. And the below findings were noted. All of the intrauterine surfaces were curettaged with a medium-size curette and the specimens were collected. Measurements of the cervix were taken using the uterine sound and the hysteroscope. The intrauterine cavity measurements were entered into the handpiece. The device was inserted into the intrauterine cavity and the array was expanded. The balloon cuff was inflated. When an adequate seal was formed the safety and energy cycles were initiated and completed. The array was collapsed, the balloon was deflated. The insert was withdrawn. The hysteroscope was reinserted and a well desiccated intrauterine cavity was observed. The patient was taken recovery room stable condition. Sponge lap and needle counts were correct x2. She tolerated the procedure well. Estimated Blood Loss -10.0 Urine Output -30.0 Pathology Yes Complications No immediate complications Condition Stable Disposition PACU
[2021-11-22] MEDS: ONDANSETRON INJ 4 MG/2 ML VIAL IV PUSH (08:50)
[2021-11-22] MEDS: oxyCODONE HCL (*CRX) 5 MG TAB IR PO (09:35)
== END 2021-11-22 10:00 | disposition home or self-care (01) ==
PROVIDERS: Visit Provider Obstetrics & Gynecology
PROC: 0UDB8ZZ Extraction of Endometrium, Via Natural or Artificial Opening Endoscopic (ICD-10-PCS; CPT 58558; principal; 2021-11-22 07:30)
DX: N83.8 Other noninflammatory disorders of ovary, fallopian tube and broad ligament (principal); N92.0 Excessive and frequent menstruation with regular cycle; Z30.2 Encounter for sterilization
CPT/HCPCS: 58661; 58563; 88302; A9270; J1100; J1885; J2250; J2405; J2704; J3010; J7030; J7120